=== PATIENT | male | born 1970 | race Caucasian/White ===

== ENCOUNTER → 2020-02-15 | Outpatient (CLI) | payer OTHER ==
[~2020-02-15] MED LIST: VENL225T PO
== END ==
LOC: LAB 14:35
PROVIDERS: ATTEND Nurse Anesthetist, Certified Registered
DX: Z01.812 Encounter for preprocedural laboratory examination (principal); Z12.11 Encounter for screening for malignant neoplasm of colon; Z20.828 Contact with and (suspected) exposure to other viral communicable diseases
CPT/HCPCS: U0003

== ENCOUNTER → 2020-02-18 | Day surgery (SDC) | payer OTHER ==
[~2020-02-18] MED LIST changes: +IPRATRPIUM/ALBUTEROL 0.5/2.5MG 3 ML NEBU. NEB PRN; +IV RINGERS SOLUTION,LACTATED 1,000 ML IV SCH; +LIDOCAINE 2% PF 5 ML VIAL. ONE; +MIDAZOLAM HCL PF 2 MG/2 ML VIAL. IV ONE; +ONDANSETRON PF 4 MG/2 ML VIAL. IV PRN; +PROPOFOL 10,000 MCG/ML (20ML) VIAL IV ONE
[2020-02-18 12:27] VITALS: BP 104/73
--- NOTE | 2020-02-24 09:30 | PATHOLOGY ---
[facility] Accession Number: [id number] . 01 Material submitted: . colon - ASCENDING COLON POLYP HOT SNARE. Modifiers: ascending . 01 Clinical history: . SCREENING COLON COLONOSCOPY . 02 Diagnosis: Colon biopsy, ascending colon polyp: - Sessile serrated polyp/adenoma. (JPM:marya; 02/23/2020) S 02/23/2020 1034 Local . 02 Comment: There is no high grade dysplasia or evidence of malignancy. (JPM:marya; 02/23/2020) . 02 Electronically signed: . Dario Barrett MD, Pathologist NPI- [id number] . 01 Gross description: . The specimen is received in formalin, labeled "Yoandy Buice, ascending colon polyp". Received is a segment of pale oliveira soft tissue measuring 0.8 cm in maximum dimensions. The surgical margin is inked and the segment is bisected. The specimen is submitted entirely in cassette A1. ([facility]; 02/22/2020) QAC/QA 02/22/2020 1656 Local . 02 Pathologist provided ICD-10: D12.2 . 02 CPT . 662277 Specimen Comment: A courtesy copy of this report has been sent to [phone] Specimen Comment: Report sent to Specimen Comment: A duplicate report has been generated due to demographic updates. Performed at: 01 [facility] [address] [facility] [address], [place] [id number] MD Larry Bunch MD Phone: [phone] Performed at: 02 [facility] [address] [place], [place] [id number] MD Dario Barrett MD Phone: [phone]
== END | disposition home or self-care (01) ==
LOC: SURG 10:03 → EDUNIT# 11:00
PROVIDERS: ATTEND Internal Medicine Gastroenterology
DX: Z12.11 Encounter for screening for malignant neoplasm of colon (principal); D12.2 Benign neoplasm of ascending colon; Z79.899 Other long term (current) drug therapy; Z98.890 Other specified postprocedural states
CPT/HCPCS: 45381; 45385; 88305; J2001; J2704; J7120

== ENCOUNTER → 2020-06-28 | Outpatient (CLI) | payer OTHER ==
[2020-02-18 12:27] VITALS: BP 104/73
[~2020-06-28] MED LIST changes: -IPRATRPIUM/ALBUTEROL 0.5/2.5MG 3 ML NEBU. NEB PRN; -IV RINGERS SOLUTION,LACTATED 1,000 ML IV SCH; -LIDOCAINE 2% PF 5 ML VIAL. ONE; -MIDAZOLAM HCL PF 2 MG/2 ML VIAL. IV ONE; -ONDANSETRON PF 4 MG/2 ML VIAL. IV PRN; -PROPOFOL 10,000 MCG/ML (20ML) VIAL IV ONE
--- NOTE | 2020-06-28 10:27 | RAD ---
EXAM: Abdomen sonogram. HISTORY: Cholelithiasis. TECHNIQUE: Sonographic imaging of the abdomen was performed. COMPARISON: None. FINDINGS: The liver is normal in size. There is a circumscribed solid hypoechoic mass within the righ t hepatic lobe measuring 2.2 cm. The gallbladder is unremarkable. The common bile duct is obscured. T he left kidney is unremarkable. The right kidney is not seen. The pancreas, spleen, aorta and inferio r vena cava are obscured due to bowel gas. IMPRESSION: 1. 2.2 cm solid circumscribed hyperechoic mass within the right hepatic lobe. In the absence of known malignancy, this most likely a hemangioma. 2. Unremarkable gallbladder. 3. Obscured midline structures, common bile duct and right kidney. Electronically signed by: Tameka Marroquin MD (06/28/2020 10:25 AM) [id number]
== END ==
LOC: US 09:23
PROVIDERS: ATTEND Internal Medicine Gastroenterology
DX: R16.0 Hepatomegaly, not elsewhere classified (principal); K80.20 Calculus of gallbladder without cholecystitis without obstruction
CPT/HCPCS: 76700